=== PATIENT | male | born 1955 | race Hispanic/Latino ===

== ENCOUNTER 2022-07-31 05:22 | Inpatient (IN) | payer BC, MEDICARE ==
[~2022-07-31] VITALS: Ht 170.2 cm; Wt 89.2 kg
[2022-07-31 06:45] VITALS: BP 123/74
[2022-07-31] MEDS ORDERED: ONDANSETRON 4MG INJ ONE (07:54)
[2022-07-31] MEDS ORDERED: GLUCAGON 1MG KIT 1 MG ML IM PRN (08:00)
[2022-07-31] MEDS ORDERED: KCL 20 MEQ ERTAB PO PRN (08:00)
[2022-07-31] MEDS ORDERED: POTASSIUM CHLORIDE 20MEQ/100ML 100 ML IV PRN ×2 (08:00)
[2022-07-31] MEDS ORDERED: NOREPINEPHRIN 4MG/NS 250ML 250 ML IV SCH (08:00)
[2022-07-31] MEDS ORDERED: VANCOMYCIN PROTOCOL PER PHARMACY IV PRN (08:00)
[2022-07-31] MEDS ORDERED: ONDANSETRON 4MG INJ IV PRN (08:00)
[2022-07-31] MEDS ORDERED: ACETAMINOPHEN 325 MG TAB PO PRN ×2 (08:00)
[2022-07-31] MEDS ORDERED: POTASSIUM CHLORIDE 10% ELIXIR 20 MEQ/15 ML UDCUP PO PRN (08:00)
[2022-07-31] MEDS ORDERED: DEXTROSE 50%-WATER 50 ML DISP.SYRIN IV PRN (08:00)
[2022-07-31] MEDS ORDERED: LIDOCAINE HCL-MPF 1% 2ML VIAL IV PRN ×2 (08:00)
[2022-07-31] MEDS ORDERED: MAGNESIUM 2GM PREMIX 50ML 50 ML IV PRN (08:00)
[2022-07-31 08:15] LABS: BASOPHILS % (AUTO) 0.3 % (0.0-5.0); HEMATOCRIT 40.5 % (42-54); LYMPHOCYTES % (AUTO) 8.9 % (21.0-51.0); MEAN CORPUSCULAR HEMOGLOBIN 28.1 pg (27.0-33.0); MEAN CORPUSCULAR HGB CONC 33.8 g/dL (32.0-36.0); MONOCYTES % (AUTO) 7.6 % (3.0-13.0); NEUTROPHILS % (AUTO) 82.6 % (40.0-77.0); PLATELET COUNT (AUTO) 193 K/uL (130-400); RED BLOOD CELL COUNT(AUTO) 4.88 MIL/uL (4.50-6.20); RED CELL DISTRIBUTION WIDTH 14.3 % (11.0-15.5); WHITE BLOOD COUNT (AUTO) 11.8 K/uL (4.8-10.8)
[2022-07-31] MEDS: ENOXAPARIN SODIUM 30 MG/0.3 ML SQ SCH (08:27)
[2022-07-31] MEDS: FAMOTIDINE 20MG VIAL IV SCH ×2 (08:27→20:37)
[2022-07-31] MEDS: 0.9%NACL 1000ML 1,000 ML IV SCH ×2 (08:28→19:05)
[2022-07-31 08:30] LABS: ALBUMIN 3.3 g/dL (3.5-5.0); CREATININE 0.9 mg/dL (0.5-1.5); POTASSIUM 3.9 mmol/L (3.5-5.1); TOTAL PROTEIN, SERUM 7.1 g/dL (6.0-8.3)
[2022-07-31 08:55] LABS: ABG BASE EXCESS 1.4 mmol/L (-2.0-3.0); ABG HCO3 26.3 mmol/L (21.0-28.0); ABG OXYGEN SATURATION 92.6 % (95.0-99.0); ABG PCO2 43 mmHg (35-48)
[2022-07-31] MEDS ORDERED: VANCOMYCIN 1.75 GM/250 ML BAG 250 ML IV SCH (09:00)
[2022-07-31] MEDS ORDERED: INSULIN GLARGINE 100 UNITS/ML 10 ML VIAL SQ SCH (09:30)
[2022-07-31 09:38] LABS: ERYTHROCYTE SEDIMENTATION RATE 30 MM/HR (0-20)
[2022-07-31 09:53] LABS: INR 0.95 (0.85-1.15); PROTHROMBIN TIME 10.4 SEC (9.6-11.6)
[2022-07-31 09:54] LABS: PARTIAL THROMBOPLASTIN TIME 27.6 SEC (26.3-35.5)
[2022-07-31] MEDS: INSULIN HUMULIN R 100 UNIT/ML 3ML SQ SCH ×3 (11:30→20:49)
[2022-07-31 12:00] VITALS: BP 116/76
[2022-07-31] MEDS: ZOSYN 3.375GM+NS 50ML 50 ML IV SCH ×2 (15:45→20:37)
[2022-07-31 16:00] VITALS: BP 126/49
[2022-07-31 17:29] LABS: APPEARANCE,URINE CLEAR (CLEAR); BILIRUBIN,URINE NEGATIVE (NEGATIVE); COLOR,URINE LIGHT-YELLOW (YELLOW); GLUCOSE, URINE (UA) >=1000 mg/dL (NEGATIVE); KETONES,URINE 10 mg/dL (NEGATIVE); LEUKOCYTE ESTERASE ,URINE 75 Leu/uL (NEGATIVE); NITRATE,URINE NEGATIVE (NEGATIVE); OCCULT BLOOD,URINE NEGATIVE (NEGATIVE); PH,URINE 5.5 (5.0-8.0); PROTEIN,URINE NEGATIVE (NEGATIVE); UROBILINOGEN,URINE 0.2 mg/dL (0.2-1.0)
[2022-07-31 17:58] LABS: BACTERIA,URINE RARE /HPF (None Seen); SQUAMOUS EPITHELIAL CELL,UR RARE /HPF (0-2)
[2022-07-31] MEDS ORDERED: VANCOMYCIN 1G/250ML KIT 250 ML IV ONE (19:38)
[2022-07-31 20:00] VITALS: BP 136/71
[2022-07-31] MEDS: VANCOMYCIN 1G/250ML KIT 250 ML IV SCH (20:37)
[2022-07-31] MEDS: INSULIN GLARGINE 100 UNITS/ML 10 ML VIAL SQ SCH (20:50)
[2022-08-01] VITALS: BP 132/75
[2022-08-01 04:00] VITALS: BP 102/60
[2022-08-01] MEDS: ZOSYN 3.375GM+NS 50ML 50 ML IV SCH ×3 (04:05→20:48)
[2022-08-01] MEDS: 0.9%NACL 1000ML 1,000 ML IV SCH ×2 (04:05→14:00)
[2022-08-01 05:17] LABS: BASOPHILS % (AUTO) 0.4 % (0.0-5.0); EOSINOPHILS % (AUTO) 1.5 % (0.0-8.0); HEMATOCRIT 38.6 % (42-54); MEAN CORPUSCULAR HEMOGLOBIN 27.7 pg (27.0-33.0); MEAN CORPUSCULAR HGB CONC 32.6 g/dL (32.0-36.0); MEAN CORPUSCULAR VOLUME 84.8 fL (79-99); MONOCYTES % (AUTO) 10.4 % (3.0-13.0); NEUTROPHILS % (AUTO) 58.1 % (40.0-77.0); PLATELET COUNT (AUTO) 175 K/uL (130-400); RED BLOOD CELL COUNT(AUTO) 4.55 MIL/uL (4.50-6.20); RED CELL DISTRIBUTION WIDTH 14.4 % (11.0-15.5); WHITE BLOOD COUNT (AUTO) 8.5 K/uL (4.8-10.8)
[2022-08-01 05:53] LABS: ALBUMIN 2.8 g/dL (3.5-5.0); CRP QUANTITATIVE 108.4 mg/L (0.00-9.0); MAGNESIUM 1.8 mg/dL (1.80-2.40); POTASSIUM 3.7 mmol/L (3.5-5.1); TOTAL PROTEIN, SERUM 6.5 g/dL (6.0-8.3)
[2022-08-01] MEDS: INSULIN HUMULIN R 100 UNIT/ML 3ML SQ SCH ×4 (06:40→20:57)
[2022-08-01] MEDS: INSULIN GLARGINE 100 UNITS/ML 10 ML VIAL SQ SCH ×2 (06:43→20:50)
[2022-08-01 06:54] LABS: ERYTHROCYTE SEDIMENTATION RATE 40 MM/HR (0-20)
[2022-08-01 08:00] VITALS: BP 99/59
[2022-08-01] MEDS: FAMOTIDINE 20MG VIAL IV SCH ×2 (08:39→20:48)
[2022-08-01] MEDS: VANCOMYCIN 1G/250ML KIT 250 ML IV SCH (08:39)
[2022-08-01] MEDS: ENOXAPARIN SODIUM 30 MG/0.3 ML SQ SCH (08:39)
[2022-08-01 12:00] VITALS: BP 119/70
[2022-08-01 16:00] VITALS: BP 107/62
[2022-08-01 20:00] VITALS: BP 135/71
[2022-08-01] MEDS ORDERED: 0.9% NACL 250ML 250 ML ONE (20:04)
[2022-08-01] MEDS ORDERED: ATOR40TA69 PO (21:06)
[2022-08-01] MEDS ORDERED: GLIM4TAB36 PO (21:06)
[2022-08-01] MEDS ORDERED: CYAN250010 PO (21:06)
[2022-08-01] MEDS ORDERED: ACAR100T2 PO (21:06)
[2022-08-01] MEDS ORDERED: SITA1TAB6 PO (21:06)
[2022-08-01] MEDS ORDERED: LEVO75TA10 PO (21:06)
[2022-08-01] MEDS ORDERED: PHARMACY COMMUNICATION MISC SCH (21:30)
[2022-08-01] MEDS: VANCOMYCIN 1.25 GM/250 ML IV SCH (23:36)
[2022-08-02] VITALS: BP 142/79
[2022-08-02 04:00] VITALS: BP 125/74
[2022-08-02 04:30] LABS: HEMATOCRIT 37.5 % (42-54); MEAN CORPUSCULAR HEMOGLOBIN 27.7 pg (27.0-33.0); MEAN CORPUSCULAR HGB CONC 32.5 g/dL (32.0-36.0); RED BLOOD CELL COUNT(AUTO) 4.41 MIL/uL (4.50-6.20); RED CELL DISTRIBUTION WIDTH 14.3 % (11.0-15.5); WHITE BLOOD COUNT (AUTO) 7.3 K/uL (4.8-10.8)
[2022-08-02] MEDS: ZOSYN 3.375GM+NS 50ML 50 ML IV SCH (04:57)
[2022-08-02] MEDS: 0.9%NACL 1000ML 1,000 ML IV SCH ×2 (05:00→09:18)
[2022-08-02 05:08] LABS: ALBUMIN 2.7 g/dL (3.5-5.0); CREATININE 0.8 mg/dL (0.5-1.5); MAGNESIUM 2.1 mg/dL (1.80-2.40); POTASSIUM 4.6 mmol/L (3.5-5.1); TOTAL PROTEIN, SERUM 6.2 g/dL (6.0-8.3)
[2022-08-02] MEDS: INSULIN HUMULIN R 100 UNIT/ML 3ML SQ SCH ×2 (06:12→15:05)
[2022-08-02] MEDS: INSULIN GLARGINE 100 UNITS/ML 10 ML VIAL SQ SCH (06:13)
[2022-08-02 07:30] VITALS: BP 118/75
[2022-08-02] MEDS: FAMOTIDINE 20MG VIAL IV SCH (08:48)
[2022-08-02] MEDS: ENOXAPARIN SODIUM 30 MG/0.3 ML SQ SCH (08:49)
[2022-08-02] MEDS: VANCOMYCIN 1.25 GM/250 ML IV SCH (09:18)
[2022-08-02 11:05] VITALS: BP 112/58
[2022-08-02] MEDS ORDERED: CEPH500B PO (13:37)
== END 2022-08-02 15:30 | disposition home or self-care (01) | DRG 871 ==
LOC: 2CH 05:40 → 4DH 10:30
PROVIDERS: ADMIT Hospitalist; ATTEND Hospitalist
DX: A41.89 Other specified sepsis (principal); R65.21 Severe sepsis with septic shock; N39.0 Urinary tract infection, site not specified; Z20.822 Contact with and (suspected) exposure to COVID-19; E03.9 Hypothyroidism, unspecified; E11.65 Type 2 diabetes mellitus with hyperglycemia; E78.5 Hyperlipidemia, unspecified; I10 Essential (primary) hypertension; Z83.3 Family history of diabetes mellitus
CPT/HCPCS: 36415; 36600; 71045; 80053; 80202; 81001; 82803; 82948; 83036; 83605; 83735; 84145; 85025; 85027; 85610; 85651; 85730; 86140; 87040; 87088; 87420; 87635; 87804; G0378; J1650; J1815; J2405; J2543; J3370; J3475; J3490; J7030; J7050

== ENCOUNTER → 2024-05-22 | Outpatient (CLI) | payer SELFPAY ==
[~2024-05-22] MED LIST: ACAR100T2 PO; ATOR40TA69 PO; CEPH500B PO; CYAN250010 PO; GLIM4TAB36 PO; IOHEXOL 350 MG/ML 100ML INFUS..BTL IV ONE; LEVO75TA10 PO; SITA1TAB6 PO
--- NOTE | 2024-05-22 10:11 | HMCIMG ---
CT CHEST/ABD/PELV W/CONRAST HISTORY: Colon cancer COMPARISON: None TECHNIQUE: Multiple sequential axial images of the chest were obtained from the thoracic inlet through upper abdomen. Patient was given 100 cc of Omnipaque through intravenous route. FINDINGS: There is no evidence of pulmonary nodule or parenchymal disease. No pleural effusion or pericardial effusion is seen. There is no evidence of pneumothorax. There are normal size mediastinal and hilar lymph nodes. The heart is not enlarged. Degenerative changes of the thoracolumbar spine are present. There is no evidence of adrenal nodule. IMPRESSION: 1. No evidence of pulmonary nodule or effusion is seen. CT CHEST/ABD/PELV W/CONRAST HISTORY: Colon cancer COMPARISON: None TECHNIQUE: Multiple sequential axial images of the abdomen and pelvis were obtained from the dome of the diaphragm through symphysis pubis. Patient was given 100 cc of Omnipaque through intravenous route. Oral contrast was given. FINDINGS: Liver measures 15 cm. No bowel obstruction is seen. Tiny hiatal hernia is seen. The liver, spleen, adrenal glands and pancreas are unremarkable. There is no evidence of hydronephrosis bilaterally. No evidence of renal stone is seen. Fecal material is seen in the colon. There are normal size retroperitoneal and mesenteric lymph nodes. No ascites is seen. No CT evidence of acute appendicitis is seen. There are bilateral inguinal hernias with fat content. Grade 1 anterolisthesis is seen at the L4-5 level. Pelvic sidewalls are symmetric bilaterally. Bladder is well distended without wall thickening. IMPRESSION: 1. No acute findings. CT was performed with one or more following dose reduction techniques: automated exposure control, adjustment of the mA and kv according to patient's size, or use of a iterative reconstruction technique.
== END | disposition home or self-care (01) ==
LOC: RAH 08:37
PROVIDERS: ATTEND Internal Medicine Gastroenterology
DX: C18.2 Malignant neoplasm of ascending colon (principal); K40.20 Bilateral inguinal hernia, without obstruction or gangrene, not specified as recurrent; M47.815 Spondylosis without myelopathy or radiculopathy, thoracolumbar region; M43.16 Spondylolisthesis, lumbar region
CPT/HCPCS: 71260; 74177; Q9967